=== PATIENT | male | born 1985 | race Caucasian/White ===

== ENCOUNTER 2020-09-30 22:03 | Emergency (ER) | payer SELFPAY ==
[~2020-09-30] VITALS: Ht 162.6 cm; Wt 117.9 kg
[2020-09-30 22:06] VITALS: BP 136/90
--- NOTE | 2020-09-30 22:06 | NUR ---
TO [facility] WITH [facility].
[2020-09-30 23:22] VITALS: BP 136/90
--- NOTE | 2020-09-30 23:22 | NUR ---
PATIENT BIB [facility] POLICE DEPT. PATIENT EXAMINED BY DR. SHANE. PATIENT MEDICALLY CLEARED AND RELEASED IN CUSTODY IN STABLE CONDITION. ORIGINAL PRE-BOOK FORM GIVEN TO OFFICER CHIKA .
--- NOTE | 2020-09-30 23:22 | NUR ---
Patient discharged with v/s stable. Written and verbal after care instructions given and explained. Patient verbalized understanding. Police with in custody. All questions addressed prior to discharge. Advised to follow up with PMD.
== END 2020-09-30 23:22 ==
LOC: MED 22:03
DX: M54.6 Pain in thoracic spine (principal); F10.129 Alcohol abuse with intoxication, unspecified; Z88.1 Allergy status to other antibiotic agents; Z02.89 Encounter for other administrative examinations; Y90.8 Blood alcohol level of 240 mg/100 ml or more
CPT/HCPCS: 99284